=== PATIENT | male | born 1960 | race African-American/Black ===

== ENCOUNTER 2017-04-20 23:03 | Observation (INO) | payer OTHER ==
--- NOTE | 2017-04-20 23:05 | PDOC ---
History of Present Illness - General Chief Complaint: Pain Stated Complaint: INDIGESTION FOR 3 MONTHS Time Seen by Provider: 04/20/17 23:04 History Source: Patient Exam Limitations: No Limitations Past History - Past Medical History Allergies/Adverse Reactions: Allergies Allergy/AdvReac Type Severity Reaction Status Date / Time No Known Allergies Allergy Verified 03/04/16 14:57 Home Medications: Ambulatory Orders Insulin Glargine,Hum.rec.anlog [Lantus Solostar PEN -] 45 units SQ AM 02/13/15 Insulin Aspart [Novolog] 0 unit SQ ASDIR 04/19/15 Ibuprofen 600 mg PO TID PRN #10 tablet 03/04/16 Diabetes: Yes Suicide Attempt (Hx): No - Surgical History Orthopedic Surgery: Yes (SX FOR HERNIATED DISC) - Immunization History Immunization Up to Date: No - Psycho/Social/Smoking Cessation Hx Anxiety: No Suicidal Ideation: No Smoking History: Former smoker Have you smoked in the past 12 months: No 'Breaking Loose' booklet given: 12/31/14 Hx Alcohol Use: No Drug/Substance Use Hx: No Substance Use Type: None Hx Substance Use Treatment: No *DC/Admit/Observation/Transfer - Discharge Dispostion Condition at time of disposition: Stable
[2017-04-20] MEDS ORDERED: ASPIRIN 81 MG CHEWABLE TABLETS PO ONE (23:27)
--- NOTE | 2017-04-20 23:29 | PDOC ---
History of Present Illness - General Chief Complaint: Pain Stated Complaint: INDIGESTION FOR 3 MONTHS Time Seen by Provider: 04/20/17 23:04 History Source: Patient Exam Limitations: No Limitations - History of Present Illness Initial Comments: 04/20/17 23:31 This is a 57-year-old male who comes in complaining of intermittent indigestion 3 months. Patient describes it as substernal pressure sensation. Patient denies any associated symptoms of nausea, diaphoresis, radiation or shortness of breath with it. Patient is concerned that he thinks it may be his gallbladder. Patient has a history significant for insulin-dependent diabetes. Patient does not know what his family history is for cardiac disease on his father's side as he says he does not know who his father is. Patient denies any history of coronary artery disease. Patient said he quit smoking many years ago and denies any recreational drug use. PAST MEDICAL HISTORY: no significant history PAST SURGICAL HISTORY: no significant history FAMILY HISTORY: no pertinant history SOCIAL HISTORY: Pt lives with family and is employed. MEDICATIONS: reviewed ALLERGIES: As per nursing notes Review of Systems General: No fevers or chills, no weakness, no weight loss HEENT: No change in vision. No sore throat,. No ear pain CardioVascular: Substernal pressure as per history of present illness or shortness of breath Respiratory:No cough, or wheezing. Gastrointestinal: no nausea, vomitting, diarrhea or constipation, No rectal bleeding Genitourinary: No dysuria, hematuria, or frequency Musculoskeletal: No joint or muscle pain or swelling Neurologic: No headache, vertigo, dizziness or loss of consciousness Psychiatric: nor depression Skin: No rashes or easy bruising Endocrine: no increased thirst or abnormal weight change Allergic: no skin or latex allergy All other systems reviewed and normal Exam: General: Well-nourished well-developed individual, no acute distress HEENT: Throat: Normal, tonsils normal, no erythema or exudate Neck: Supple, no meningeal signs, no lymphadenopathy Eyes::Pupils equal reactive and round, extraocular motion intact Chest: Nontender to palpation Cardiac: S1-S2 normal, regular rate and rhythm, no murmurs rubs or gallops Respiratory: Lungs clear to auscultation bilateral Abdomen: Soft, nondistended, normal bowel sounds, nontender to palpation diffusely Extremities: Warm, dry, no cyanosis, clubbing, or edema Skin: No rashes Neuro: Alert and oriented x3, nonfocal exam, grossly intact, normal gait Psych: Normal mood and affect EKG shows normal sinus rhythm at a rate is 78, there are Q waves in V1 and V2 otherwise no acute ST-T wave changes Assessment and plan: Past History - Past Medical History Allergies/Adverse Reactions: Allergies Allergy/AdvReac Type Severity Reaction Status Date / Time No Known Allergies Allergy Verified 03/04/16 14:57 Home Medications: Ambulatory Orders Insulin Glargine,Hum.rec.anlog [Lantus Solostar PEN -] 45 units SQ AM 02/13/15 Insulin Aspart [Novolog] 0 unit SQ ASDIR 04/19/15 Ibuprofen 600 mg PO TID PRN #10 tablet 03/04/16 Diabetes: Yes Suicide Attempt (Hx): No - Surgical History Orthopedic Surgery: Yes (SX FOR HERNIATED DISC) - Immunization History Immunization Up to Date: No - Psycho/Social/Smoking Cessation Hx Anxiety: No Suicidal Ideation: No Smoking History: Never smoked Have you smoked in the past 12 months: No 'Breaking Loose' booklet given: 12/31/14 Hx Alcohol Use: No Drug/Substance Use Hx: No Substance Use Type: None Hx Substance Use Treatment: No *Physical Exam - Vital Signs Last Vital Signs Temp Pulse Resp BP Pulse Ox 97.9 F 92 H 18 125/92 95 04/20/17 23:06 04/20/17 23:06 04/20/17 23:06 04/20/17 23:06 04/20/17 23:06 Heart Score/ECG Review - History History: Moderately suspicious - Electrocardiogram EKG: Non specific repolarization disturbance - Age Age: 45-65 - Risk Factors Risk Factors Heart Score: Yes Hx Diabetes Based on the list above the patient has:: 1-2 risk factors - Troponin Troponin: </= normal limit - Score Heart Score - Total: 4 ED Treatment Course - LABORATORY CBC & Chemistry Diagram: 04/20/17 23:30 04/20/17 23:30 - ADDITIONAL ORDERS Additional order review: Laboratory Results 04/20/17 04/20/17 04/20/17 23:30 23:30 23:30 Sodium Potassium Chloride Carbon Dioxide Anion Gap BUN Creatinine Creat Clearance w eGFR Random Glucose Calcium Total Bilirubin AST ALT Alkaline Phosphatase Creatine Kinase 306 D Cancelled Creatine Kinase Index CK-MB (CK-2) < 1.000 CK-MB (CK-2) Rel Index Cancelled Troponin I < 0.02 Cancelled Total Protein Albumin 04/20/17 23:30 Sodium 141 Potassium 4.1 Chloride 105 Carbon Dioxide 28 Anion Gap 8 BUN 10 D Creatinine 1.1 D Creat Clearance w eGFR > 60 Random Glucose 191 H D Calcium 8.4 L Total Bilirubin 0.3 D AST 16 D ALT 18 D Alkaline Phosphatase 67 D Creatine Kinase Creatine Kinase Index CK-MB (CK-2) CK-MB (CK-2) Rel Index Troponin I Total Protein 6.8 Albumin 3.7 04/20/17 23:30 RBC 4.86 MCV 83.0 MCHC 32.6 RDW 13.6 MPV 8.7 D Neutrophils % 47.6 Lymphocytes % 42.9 H Monocytes % 6.0 Eosinophils % 2.8 Basophils % 0.7 - RADIOLOGY Radiology Studies Ordered: Category Date Time Status CHEST X-RAY PORTABLE* [RAD] Stat Radiology 04/20/17 23:33 Taken - Medications Given in the ED: ED Medications Discontinued Medications Generic Name Dose Route Start Last Admin Trade Name Freq PRN Reason Stop Dose Admin Aspirin 325 mg 04/20/17 23:27 04/20/17 23:37 Asa - PO 04/20/17 23:28 325 mg ONCE ONE Administration *DC/Admit/Observation/Transfer Diagnosis at time of Disposition: Chest pain Qualifiers: Chest pain type: unspecified Qualified Code(s): R07.9 - Chest pain, unspecified - Discharge Dispostion Condition at time of disposition: Stable Admit: Yes
[2017-04-20] MEDS ORDERED: ASPIRIN 81 MG CHEWABLE TABLETS ONE (23:36)
[2017-04-21 00:44] LABS: BASOPHIL 0.7 % (0-2.0); EOSINOPHIL 2.8 % (0-4.5); MCHC 32.6 g/dl (32.0-35.9); MEAN PLT VOLUME 8.7 fl (7.5-11.1); NEUTROPHILS 47.6 % (42.8-82.8); PLATELET COUNT 255 K/MM3 (134-434); RDW 13.6 % (11.9-15.9); WHITE BLOOD COUNT 5.8 K/mm3 (4.0-10.0)
[2017-04-21 01:03] LABS: ALK PHOS 67 U/L (45-117)
[2017-04-21 01:05] LABS: TROPONIN I < 0.02 ng/ml (0.00-0.05)
[2017-04-21 01:07] LABS: ALBUMIN 3.7 g/dl (3.4-5.0); ANION GAP 8 (8-16); BILIRUBIN,TOTAL 0.3 mg/dL (0.2-1.0); CALCIUM 8.4 mg/dL (8.5-10.1); CO2 28 mmol/L (21-32); CREATININE 1.1 mg/dL (0.7-1.3); GLUCOSE,RANDOM 191 mg/dL (74-106); SGOT/AST 16 U/L (15-37); SGPT/ALT 18 U/L (12-78); TOT PROT 6.8 g/dl (6.4-8.2)
[2017-04-21] MEDS ORDERED: INSULIN SLIDING SCALE (NOVOLOG) 1 VIAL SQ SCH ×2 (02:00→11:00)
[2017-04-21 02:40] VITALS: BMI 31.9
[2017-04-21] MEDS: INSULIN SLIDING SCALE (NOVOLOG) 1 VIAL SQ SCH ×2 (06:30→12:45)
--- NOTE | 2017-04-21 07:44 | HP ---
CHIEF COMPLAINT: epigastric discomfort PCP: Dr Gomez HISTORY OF PRESENT ILLNESS: Patient is a 57 y/o male with a past medical history of IDDM. Patient reports for the past 3 month of indigestion. In addition, he reports for the past 3 months the sensation of food becoming stuck in his esophagus after swallowing with worsening of difficulty passing foods. Patient is able pass fluids without difficulty. He reports worsening of epigastric discomfort within the past 12 hours and sought evaluation in the emergency department. ER course was notable for: (1) troponin x 1 wnl (2) ekg normal sinus rhythm (3) chest xray no evidence of acute pulmonary disease Recent Travel: none PAST MEDICAL HISTORY: see hpi PAST SURGICAL HISTORY: cervical disc fusion Social History: employed Smoking: quit 20years ago Alcohol:none Drugs: none Family History: father unknown, mother lung ca sister, CHF Allergies No Known Allergies Allergy (Verified 03/04/16 14:57) HOME MEDICATIONS: Home Medications Medication Instructions Recorded Insulin Glargine,Hum.rec.anlog 45 units SQ AM 02/13/15 [Lantus Solostar PEN -] Insulin Aspart [Novolog] 0 unit SQ ASDIR 04/19/15 Ibuprofen 600 mg PO TID PRN #10 tablet 03/04/16 REVIEW OF SYSTEMS CONSTITUTIONAL: Absent: fever, chills, diaphoresis, generalized weakness, malaise, loss of appetite, weight change HEENT: Absent: rhinorrhea, nasal congestion, throat pain, throat swelling, difficulty swallowing, mouth swelling, ear pain, eye pain, visual changes CARDIOVASCULAR: Absent: chest pain, syncope, palpitations, irregular heart rate, lightheadedness , peripheral edema RESPIRATORY: Absent: cough, shortness of breath, dyspnea with exertion, orthopnea, wheezing, stridor, hemoptysis GASTROINTESTINAL: present: indigestion, difficultly swallowing Absent: abdominal pain, abdominal distension, nausea, vomiting, diarrhea, constipation, melena, hematochezia GENITOURINARY: Absent: dysuria, frequency, urgency, hesitancy, hematuria, flank pain, genital pain MUSCULOSKELETAL: Absent: myalgia, arthralgia, joint swelling, back pain, neck pain SKIN: Absent: rash, itching, pallor HEMATOLOGIC/IMMUNOLOGIC: Absent: easy bleeding, easy bruising, lymphadenopathy, frequent infections ENDOCRINE: Absent: unexplained weight gain, unexplained weight loss, heat intolerance, cold intolerance NEUROLOGIC: Absent: headache, focal weakness or paresthesias, dizziness, unsteady gait, seizure, mental status changes, bladder or bowel incontinence PSYCHIATRIC: Absent: anxiety, depression, suicidal or homicidal ideation, hallucinations. PHYSICAL EXAMINATION Vital Signs - 24 hr 04/21/17 04/21/17 04/21/17 02:31 06:00 06:15 Temperature 98 F 98 F 98.3 F Pulse Rate 82 82 74 Respiratory 18 18 18 Rate Blood Pressure 130/65 130/65 120/72 O2 Sat by Pulse 97 Oximetry (%) GENERAL: Awake, alert, and fully oriented, in no acute distress. HEAD: Normal with no signs of trauma. EYES: Pupils equal, round and reactive to light, extraocular movements intact, sclera anicteric, conjunctiva clear. No lid lag. EARS, NOSE, THROAT: Ears normal, nares patent, oropharynx clear without exudates. Moist mucous membranes. NECK: Normal range of motion, supple without lymphadenopathy, JVD, or masses. LUNGS: Breath sounds equal, clear to auscultation bilaterally. No wheezes, and no crackles. No accessory muscle use. HEART: Regular rate and rhythm, normal S1 and S2 without murmur, rub or gallop. ABDOMEN: Soft, nontender, not distended, normoactive bowel sounds, no guarding, no rebound, no masses. No hepatomegaly or splenomegaly. MUSCULOSKELETAL: Normal range of motion at all joints. No bony deformities or tenderness. No CVA tenderness. UPPER EXTREMITIES: 2+ pulses, warm, well-perfused. No cyanosis. No clubbing. No peripheral edema. LOWER EXTREMITIES: 2+ pulses, warm, well-perfused. No calf tenderness. No peripheral edema. NEUROLOGICAL: Cranial nerves II-XII intact. Normal speech. Normal gait. PSYCHIATRIC: Cooperative. Good eye contact. Appropriate mood and affect. SKIN: Warm, dry, normal turgor, no rashes or lesions noted, normal capillary refill. Laboratory Results - last 24 hr 04/21/17 06:30 POC Glucometer 205 CBC WBC 5.8 K/mm3 (4.0-10.0) 04/20/17 23:30 RBC 4.86 M/mm3 (4.00-5.60) 04/20/17 23:30 Hgb 13.1 GM/dL (11.7-16.9) 04/20/17 23:30 Hct 40.3 % (35.4-49) 04/20/17 23:30 MCV 83.0 fl (80-96) 04/20/17 23:30 MCH 27.0 pg (25.7-33.7) 04/20/17 23:30 MCHC 32.6 g/dl (32.0-35.9) 04/20/17 23:30 RDW 13.6 % (11.9-15.9) 04/20/17 23:30 Plt Count 255 K/MM3 (134-434) 04/20/17 23:30 MPV 8.7 fl (7.5-11.1) D 04/20/17 23:30 Neutrophils % 47.6 % (42.8-82.8) 04/20/17 23:30 Lymphocytes % 42.9 % (8-40) H 04/20/17 23:30 Monocytes % 6.0 % (3.8-10.2) 04/20/17 23:30 Eosinophils % 2.8 % (0-4.5) 04/20/17 23:30 Basophils % 0.7 % (0-2.0) 04/20/17 23:30 CMP Sodium 141 mmol/L (136-145) 04/20/17 23:30 Potassium 4.1 mmol/L (3.5-5.1) 04/20/17 23:30 Chloride 105 mmol/L (98-107) 04/20/17 23:30 Carbon Dioxide 28 mmol/L (21-32) 04/20/17 23:30 Anion Gap 8 (8-16) 04/20/17 23:30 BUN 10 mg/dL (7-18) D 04/20/17 23:30 Creatinine 1.1 mg/dL (0.7-1.3) D 04/20/17 23:30 Creat Clearance w eGFR > 60 (>60) 04/20/17 23:30 POC Glucometer 205 UNITS (()) 04/21/17 06:30 Random Glucose 191 mg/dL (74-106) H D 04/20/17 23:30 Calcium 8.4 mg/dL (8.5-10.1) L 04/20/17 23:30 Total Bilirubin 0.3 mg/dL (0.2-1.0) D 04/20/17 23:30 AST 16 U/L (15-37) D 04/20/17 23:30 ALT 18 U/L (12-78) D 04/20/17 23:30 Alkaline Phosphatase 67 U/L (45-117) D 04/20/17 23:30 Creatine Kinase 306 IU/L (39-308) D 04/20/17 23:30 Creatine Kinase Index % (0.0-5.0) 04/20/17 23:30 CK-MB (CK-2) < 1.000 ng/ml (0.5-3.6) 04/20/17 23:30 CK-MB (CK-2) Rel Index Cancelled 04/20/17 23:30 Troponin I 0.01 ng/ml (0.00-0.05) 04/21/17 07:56 Total Protein 6.8 g/dl (6.4-8.2) 04/20/17 23:30 Albumin 3.7 g/dl (3.4-5.0) 04/20/17 23:30 ASSESSMENT/PLAN: 1) GI - pt reports difficulty passing foods, will order a barium swallow - he does report indigestion in the evening, will order PPI - known history of iddm, likely gastroperesis or achalasia, appreciate GI input 2) card - troponin x 2 wnl, pending 3rd, unlikely acs - ekg unchanged from prior, nsr no st abnormality - will require cardiac follow up as outpatient 3) endo -history of IDDM, continue fingersticks achs with regular insulin coverage, continue home dose lantus - pending hgb a1c f//e/n - diabetic diet - replete lytes prn ppx - pt is oob - protonix dispo: requires obsv admission. Problem List - Problem (1) Atypical chest pain Code(s): R07.89 - OTHER CHEST PAIN (2) Indigestion Code(s): K30 - FUNCTIONAL DYSPEPSIA Visit type - Emergency Visit Emergency Visit: Yes ED Registration Date: 04/21/17 Care time: The patient presented to the Emergency Department on the above date and was hospitalized for further evaluation of their emergent condition. - New Patient This patient is new to me today: Yes Date on this admission: 04/21/17 - Critical Care Critical Care patient: No
[2017-04-21 08:51] LABS: ACTIVATED PTT 27.9 SECONDS (24.0-38.9)
[2017-04-21 09:04] LABS: INR 0.97 (0.82-1.09); PROTHROMBIN TIME (PATIENT) 10.9 SEC (10.2-13.0)
[2017-04-21] MEDS ORDERED: PANTOPRAZOLE 40 MG TABLET (FP) PO SCH (10:00)
--- NOTE | 2017-04-21 10:21 | CON.CARD ---
Consult Consult Specialty:: Cardiology Referred by:: Hospitalist Medicine Reason for Consultation:: Chest pain - History of Present Illness Chief Complaint: Chest pain History of Present Illness: This is a 57-year-old male with h/o insulin-dependent Type 2 DM who presents with complaint of intermittent non-exertional indigestion 3 months. Patient describes it as substernal and epigastric pressure sensation, characterized with difficulty passing solid foods, but not liquids, sensation worse with lying down improved sitting up. Patient denies any associated symptoms of nausea , diaphoresis, radiation or shortness of breath, near or true syncope, palpitations, orthopnea, PND or LE edema. PAST MEDICAL HISTORY: no significant history PAST SURGICAL HISTORY: no significant history FAMILY HISTORY: no pertinant history SOCIAL HISTORY: Pt lives with family and is employed. MEDICATIONS: reviewed ALLERGIES: As per nursing notes - History Source History Provided By: Patient Limitations to Obtaining History: No Limitations - Past Medical History Endocrine: Yes: Diabetes Mellitus - Alcohol/Substance Use Hx Alcohol Use: No - Smoking History Smoking history: Never smoked Have you smoked in the past 12 months: No Home Medications - Allergies Allergies/Adverse Reactions: Allergies Allergy/AdvReac Type Severity Reaction Status Date / Time No Known Allergies Allergy Verified 03/04/16 14:57 - Home Medications Home Medications: Ambulatory Orders Insulin Glargine,Hum.rec.anlog [Lantus Solostar PEN -] 45 units SQ AM 02/13/15 Insulin Aspart [Novolog] 0 unit SQ ASDIR 04/19/15 Ibuprofen 600 mg PO TID PRN #10 tablet 03/04/16 Review of Systems - Review of Systems Gastrointestinal: reports: Dysphagia, Indigestion Vital Signs: Vital Signs Temperature 98.3 F 04/21/17 06:15 Pulse Rate 74 04/21/17 06:15 Respiratory Rate 18 04/21/17 06:15 Blood Pressure 120/72 04/21/17 06:15 O2 Sat by Pulse Oximetry (%) 97 04/21/17 06:15 Constitutional: Yes: No Distress, Calm Neck: Yes: Supple Respiratory: Yes: Regular, CTA Bilaterally Gastrointestinal: Yes: Normal Bowel Sounds, Soft Cardiovascular: Yes: Regular Rate and Rhythm JVD: No Carotid Bruit: No Heart Sounds: Yes: S1, S2 Edema: No - Other Data Labs, Other Data: INR, PTT INR 0.97 (0.82-1.09) 04/21/17 07:56 Troponin, BNP 04/21/17 07:56 Troponin I 0.01 Troponin, BNP 04/21/17 07:56 Troponin I 0.[address]-T changes Imaging - Results Chest X-ray: Report Reviewed (NAD) Problem List - Problems (1) Atypical chest pain Code(s): R07.89 - OTHER CHEST PAIN (2) Insulin dependent diabetes mellitus Code(s): E11.9 - TYPE 2 DIABETES MELLITUS WITHOUT COMPLICATIONS Z79.4 - DIE WELDER (CURRENT) USE OF INSULIN Assessment/Plan 1. Chest pain syndrome with atypical features r/o esophageal stricture, obstruction, achalasia, dysmotility, gastroparesis 2. Insulin-dependent Type 2 DM P:1. Barium swallow, GI evaluation for EGD, manometry, ruled out for VT 2. Thank you for consultative opportunity
[2017-04-21] MEDS ORDERED: METOCLOPRAMIDE HCL 10 MG TABLET (FP) PO SCH (11:00)
[2017-04-21 11:08] LABS: CHOLESTEROL 176 mg/dl
--- NOTE | 2017-04-21 11:50 | CON.GI ---
Consult Consult Specialty:: GI Reason for Consultation:: epigastric disomfort atypical chest pain - History of Present Illness Chief Complaint: epigastric discomfort History of Present Illness: Mr. Coleman is a 57 year old man with a past medical history of DM who presents to the ER with complaints of chest pain and sensation of food intermittently sticking in his throat. He states he has been experiencing these GI complaints over the past three months. He states he has intermittent reflux. He denies vomiting, nausea, melena, BRBR, weight loss , smoking , etoh abuse. He has never been hospitalized for food impaction. Last colonoscopy 4 years ago - he reports polyps. He has never had an egd in the past. He tolerated full breakfast today without complaints. - History Source History Provided By: Patient Limitations to Obtaining History: No Limitations - Past Medical History [employer]: No: Alzheimer's, CVA, Dementia, Migraine, Multiple Sclerosis, Peripheral Neuropathy, Parkinson's, Seizure, Syncope, TIA, Vertigo, Other Cardio/Vascular: No: AFIB, Aneurysm, Aortic Insufficiency, Aortic Stenosis, CAD , CHF, Deep Vein Thrombosis, HTN, Hyperlipdemia, MD, Mitral Insufficiency, Mitral Stenosis, Murmur, Pulmonary Hypertension, Other Pulmonary: No: Asthma, Bronchitis, Cancer, COPD, O2 Dependent, Pneumonia, Previously Intubated, Pulmonary Embolus, Pulmonary Fibrosis, Sleep Apnea, Other Gastrointestinal: No: Ascites, Cancer, Constipation, Crohn's Disease, Diverticulitis, Diverticulosis, Esophageal Varices, Gastritis, GERD, GI Bleed, Hemorrhoids, Hiatal Hernia, Inflamatory Bowel Disease, Irritable Bowel Disease, Pancreatitis, Peptic Ulcer Disease, Ulcerative Colitis, Other Hepatobiliary: No: Cirrhosis, Cholelithiasis, Cholecystitis, Choledocholithiasis , Hepatitis A, Hepatitis B, Hepatitis C, Other Renal/: No: Renal Failure, Renal Inusuff, BPH, Cancer, Hematuria, Hemodialysis , Neurogenic Bladder, Renal Calculi, UTI, Other Heme/Onc: No: Anemia, B12 Deficiency, Bleeding Disorder, Cancer, Current Chemotherapy, Current Radiation Therapy, Hemochromatosis, Hypercoaguable State, Myeloproliferative Synd, Sickle Cell Disease, Sickle Cell Trait, Thrombocytopenia, Other Infectious Disease: No: AIDS, C-Diff, Herpes Zoster, HIV, MRSA, STD's, Tuberculosis, VREF, Other ENT: No: Allergic Rhinitis, Sinusitis, Other Endocrine: Yes: Diabetes Mellitus Dermatology: No: Basal Cell, Cellulitis, Eczema, Melanoma, Psoriasis, Squamous Cell, Other - Past Surgical History Past Surgical History: Yes: None - Alcohol/Substance Use Hx Alcohol Use: No - Smoking History Smoking history: Never smoked Have you smoked in the past 12 months: No - Social History Usual Living Arrangement: With Significant Other History of Recent Travel: No Home Medications - Allergies Allergies/Adverse Reactions: Allergies Allergy/AdvReac Type Severity Reaction Status Date / Time No Known Allergies Allergy Verified 03/04/16 14:57 - Home Medications Home Medications: Ambulatory Orders Insulin Glargine,Hum.rec.anlog [Lantus Solostar PEN -] 45 units SQ AM 02/13/15 Insulin Aspart [Novolog] 0 unit SQ ASDIR 04/19/15 Ibuprofen 600 mg PO TID PRN #10 tablet 03/04/16 Family Disease History - Family Disease History Family History: Unremarkable Review of Systems - Review of Systems Constitutional: denies: No Symptoms, Chills, Diaphoresis, Fever, Lethargy, Loss of Appetite, Malaise, Night Sweats, Unintentional Wgt. Loss, Weakness, Other Eyes: denies: No Symptoms, Blind Spots, Blurred Vision, Double Vision, Eye Pain , Floaters, Photophobia, Recent Change in Vision, Other HENT: denies: No Symptoms, Difficult Swallowing, Ear Discharge, Ear Pain, Epistaxis, Gingival Bleeding, Hearing Loss, Mouth Swelling, Nasal Congestion, Ocular Prosthesis, Throat Pain, Toothache, Ringing in Ears, Other Neck: denies: No Symptoms, Decreased ROM, Lumps, Pain on Movement, Stiffness, Swollen Glands, Tenderness, Other Cardiovascular: reports: Chest Pain Respiratory: denies: No Symptoms, Cough, Exercise Intolerance, Hemoptysis, Orthopnea, PND, Snoring, SOB, SOB on Exertion, Wheezing, Other Gastrointestinal: reports: Dysphagia Genitourinary: denies: No Symptoms, Burning, Discharge, Dysuria, Flank Pain, Frequency, Hematuria, Incontinence, Lesions, Menses, Pain, Testicular Mass, Testicular Pain, Testicular Swelling, Urgency, Vaginal Bleeding, Other Physical Exam-GI Vital Signs: Vital Signs Temperature 98.1 F 04/21/17 10:00 Pulse Rate 73 04/21/17 10:00 Respiratory Rate 18 04/21/17 10:00 Blood Pressure 121/69 04/21/17 10:00 O2 Sat by Pulse Oximetry (%) 97 04/21/17 10:00 Constitutional: Yes: Well Nourished Eyes: Yes: WNL HENT: Yes: WNL Neck: Yes: WNL Cardiovascular: Yes: WNL Respiratory: Yes: WNL Gastrointestinal Inspection: Yes: WNL ...Auscultate: Yes: Normoactive Bowel Sounds Extremities: Yes: WNL Labs: INR, PTT INR 0.97 (0.82-1.09) 04/21/17 07:56 Problem List - Problems (1) Atypical chest pain Code(s): R07.89 - OTHER CHEST PAIN (2) Dysphagia Assessment/Plan: Impression: atypical chest pain / dysphagia DDX - esophagitis/ peptic stricture / motility disorder REC: diet as tolerated PPI 40 mg po qd complete cardiac evaluation ; outpt follow - up for diagnostic egd scheduling appt scheduled 05/03/17 Rg Yeh AT 1:30 pm Code(s): R13.10 - DYSPHAGIA, UNSPECIFIED
[2017-04-21] MEDS ORDERED: INSULIN (NOVOLOG) ASPART 100 UNITS/ML 10ML VIAL ONE (12:25)
[2017-04-21 14:29] VITALS: BP 129/74; PULSE 88; TEMP 97.9
--- NOTE | 2017-04-21 14:29 | EKG ---
Test Reason : Blood Pressure : / mmHG Vent. Rate : 078 BPM Atrial Rate : 078 BPM P-R Int : 146 ms QRS Dur : 088 ms QT Int : 372 ms P-R-T Axes : 023 -12 -05 degrees QTc Int : 424 ms NORMAL SINUS RHYTHM SEPTAL INFARCT (CITED ON OR BEFORE 03-FEB-2015) ABNORMAL ECG WHEN COMPARED WITH ECG OF 03-FEB-2015 00:40, NO SIGNIFICANT CHANGE WAS FOUND Confirmed by MARIAELENA BENTLEY MD ([id number]) on 04/21/2017 2:29:09 PM Referred By: MD BENJAMIN Confirmed By:MARIAELENA BENTLEY MD
[2017-04-21 14:49] LABS: CPK(DFH) 246 IU/L (38-174)
[2017-04-21 14:55] LABS: TROPONIN I (DFP) < 0.03 ng/ml (0.03-0.50)
[2017-04-21 15:21] LABS: CK MB 1.3 ng/ml (0.3-4.0)
[2017-04-22] MEDS ORDERED: INSULIN DETEMIR 100 UNITS/ML MDV SQ SCH (07:00)
--- NOTE | 2017-04-22 13:17 | DS ---
Physical Exam: SUBJECTIVE: Patient seen and examined, patient reports feeling well, denies any chest pain, patient is ambulatory throughout nursing station, pt denies any dyspnea upon exertion. OBJECTIVE:Patient is a 57 y/o male with a past medical history of IDDM. Patient reports for the past 3 month of indigestion. In addition, he reports for the past 3 months the sensation of food becoming stuck in his esophagus after swallowing with worsening of difficulty passing foods. Patient is able pass fluids without difficulty. He reports worsening of epigastric discomfort within the past 12 hours and sought evaluation in the emergency department. ER course was notable for: (1) troponin x 1 wnl (2) ekg normal sinus rhythm (3) chest xray no evidence of acute pulmonary disease Vital Signs Period Temp Pulse Resp BP Sys/Fung Pulse Ox Last 24 Hr 97.9 F 88 19 129/74 98 PHYSICAL EXAM GENERAL: The patient is awake, alert, and fully oriented, in no acute distress. HEAD: Normal with no signs of trauma. EYES: PERRL, extraocular movements intact, sclera anicteric, conjunctiva clear. ENT: Ears normal, nares patent, oropharynx clear without exudates, moist mucous membranes. NECK: Trachea midline, full range of motion, supple. LUNGS: Breath sounds equal, clear to auscultation bilaterally, no wheezes, no crackles, no accessory muscle use. HEART: Regular rate and rhythm, S1, S2 without murmur, rub or gallop. ABDOMEN: Soft, nontender, nondistended, normoactive bowel sounds, no guarding, no rebound, no hepatosplenomegaly, no masses. EXTREMITIES: 2+ pulses, warm, well-perfused, no edema. NEUROLOGICAL: Cranial nerves II through XII grossly intact. Normal speech, gait not observed. PSYCH: Normal mood, normal affect. SKIN: Warm, dry, normal turgor, no rashes or lesions noted. LABS Laboratory Results - last 24 hr 04/21/17 04/21/17 07:56 14:10 Hemoglobin A1c % 10.5 H D Creatine Kinase 246 H D CK-MB (CK-2) 1.3 CK-MB (CK-2) Rel Index 0.5 Troponin I < 0.03 L CBC WBC 5.8 K/mm3 (4.0-10.0) 04/20/17 23:30 RBC 4.86 M/mm3 (4.00-5.60) 04/20/17 23:30 Hgb 13.1 GM/dL (11.7-16.9) 04/20/17 23:30 Hct 40.3 % (35.4-49) 04/20/17 23:30 MCV 83.0 fl (80-96) 04/20/17 23:30 MCH 27.0 pg (25.7-33.7) 04/20/17 23:30 MCHC 32.6 g/dl (32.0-35.9) 04/20/17 23:30 RDW 13.6 % (11.9-15.9) 04/20/17 23:30 Plt Count 255 K/MM3 (134-434) 04/20/17 23:30 MPV 8.7 fl (7.5-11.1) D 04/20/17 23:30 Neutrophils % 47.6 % (42.8-82.8) 04/20/17 23:30 Lymphocytes % 42.9 % (8-40) H 04/20/17 23:30 Monocytes % 6.0 % (3.8-10.2) 04/20/17 23:30 Eosinophils % 2.8 % (0-4.5) 04/20/17 23:30 Basophils % 0.7 % (0-2.0) 04/20/17 23:30 CMP Sodium 141 mmol/L (136-145) 04/20/17 23:30 Potassium 4.1 mmol/L (3.5-5.1) 04/20/17 23:30 Chloride 105 mmol/L (98-107) 04/20/17 23:30 Carbon Dioxide 28 mmol/L (21-32) 04/20/17 23:30 Anion Gap 8 (8-16) 04/20/17 23:30 BUN 10 mg/dL (7-18) D 04/20/17 23:30 Creatinine 1.1 mg/dL (0.7-1.3) D 04/20/17 23:30 Creat Clearance w eGFR > 60 (>60) 04/20/17 23:30 POC Glucometer 240 UNITS (()) 04/21/17 12:05 Random Glucose 191 mg/dL (74-106) H D 04/20/17 23:30 Hemoglobin A1c % 10.5 % (4.8-6.0) H D 04/21/17 07:56 Calcium 8.4 mg/dL (8.5-10.1) L 04/20/17 23:30 Total Bilirubin 0.3 mg/dL (0.2-1.0) D 04/20/17 23:30 AST 16 U/L (15-37) D 04/20/17 23:30 ALT 18 U/L (12-78) D 04/20/17 23:30 Alkaline Phosphatase 67 U/L (45-117) D 04/20/17 23:30 Creatine Kinase 246 IU/L (38-174) H D 04/21/17 14:10 Creatine Kinase Index % (0.0-5.0) 04/20/17 23:30 CK-MB (CK-2) 1.3 ng/ml (0.3-4.0) 04/21/17 14:10 CK-MB (CK-2) Rel Index 0.5 % (0.0-5.0) 04/21/17 14:10 Troponin I < 0.03 ng/ml (0.03-0.50) L 04/21/17 14:10 Total Protein 6.8 g/dl (6.4-8.2) 04/20/17 23:30 Albumin 3.7 g/dl (3.4-5.0) 04/20/17 23:30 Triglycerides 188 mg/dl (35-160) H 04/21/17 07:56 Cholesterol 176 mg/dl 04/21/17 07:56 Total LDL Cholesterol 101 mg/dl 04/21/17 07:56 HDL Cholesterol 37 mg/dl (29-89) 04/21/17 07:56 Laboratory Tests 04/20/17 04/21/17 04/21/17 23:30 07:56 14:10 Troponin I < 0.02 0.01 < 0.03 L HOSPITAL COURSE: patient was admitted from the emergency department for r/o acs. Patient reports difficulty passing foods and indigestion in the evening. patient was placed on PPI - known history of iddm, likely gastroperesis or achalasia, Patient's hgb a1c was notable for 10.5. GI, Dr Reich was consulted and followed. Troponin x 3 wnl. ekg unchanged from prior, nsr no st abnormality, chest discomfort unlikely acs. Dr Wen, cardiology, was consulted and followed. Patient has a past medical history of IDDM, continue fingersticks achs with regular insulin coverage, continue home dose lantus. Date of Admission:04/21/17 Date of Discharge: 04/22/17 Minutes to complete discharge: 45 Discharge Summary Reason For Visit: INDIGESTION FOR 3 MONTHS Current Active Problems Atypical chest pain (Acute) Chest pain (Acute) Dysphagia (Acute) Indigestion (Acute) Insulin dependent diabetes mellitus (Acute) Condition: Improved - Instructions Diet, Activity, Other Instructions: resume soft diabetic diet continue taking protonix daily you have a scheduled appointment with Dr Johnna Reich GI on Wednesday, May 03 at 130pm at the [address] if any new or persistent symptoms develop please return to the emergency department Referrals: Johnna Reich, [Staff Physician] - 05/03/17 1:30 pm STAFF,NOT ON [Primary Care Provider] - Disposition: HOME - Home Medications Comprehensive Discharge Medication List: Ambulatory Orders Insulin Glargine,Hum.rec.anlog [Lantus Solostar PEN -] 45 units SQ AM 02/13/15 Insulin Aspart [Novolog] 0 unit SQ ASDIR 04/19/15 Ibuprofen 600 mg PO TID PRN #10 tablet 03/04/16 Pantoprazole Sodium [Protonix -] 40 mg PO DAILY #30 tab 04/21/17 Problem List - Problems (1) Atypical chest pain Code(s): R07.89 - OTHER CHEST PAIN (2) Indigestion Code(s): K30 - FUNCTIONAL DYSPEPSIA This patient is new to me today: No Emergency Visit: Yes ED Registration Date: 04/21/17 Care time: The patient presented to the Emergency Department on the above date and was hospitalized for further evaluation of their emergent condition. Critical Care patient: No - Discharge Referral Referred to [facility] No
--- NOTE | 2017-04-22 17:34 | EKG ---
Test Reason : Blood Pressure : / mmHG Vent. Rate : 076 BPM Atrial Rate : 076 BPM P-R Int : 144 ms QRS Dur : 084 ms QT Int : 366 ms P-R-T Axes : 037 -12 003 degrees QTc Int : 411 ms NORMAL SINUS RHYTHM WHEN COMPARED WITH ECG OF 20-APR-2017 23:20, septal Mi not as evident Confirmed by MD CAMACHO MARJORY ([id number]) on 04/22/2017 5:34:26 PM Referred By: MD PEREIRA Confirmed By:MATTHEW CAMACHO MD
== END 2017-04-21 15:39 | disposition home or self-care (01) ==
LOC: FER 23:03 → FM/S 04-21 01:42
PROVIDERS: ADMIT Internal Medicine; ATTEND Nurse Practitioner Family
PROC: 3E033VG Introduction of Insulin into Peripheral Vein, Percutaneous Approach (ICD-10-PCS; principal; 2017-04-21)
DX: R07.89 Other chest pain (principal); K30 Functional dyspepsia; E11.9 Type 2 diabetes mellitus without complications; Z79.4 Long term (current) use of insulin
CPT/HCPCS: 36415; 71010-TC; 80053; 80061; 82550; 82553; 83036; 84484; 85025; 85610; 85730; 93005; 93010; 99282-25; G0378

== ENCOUNTER 2018-08-08 11:57 | Emergency (ER) | payer OTHER ==
--- NOTE | 2018-08-08 12:05 | PDOC ---
History of Present Illness - General Chief Complaint: Blood Sugar Problem Stated Complaint: HYPERGLYCEMIA Time Seen by Provider: 08/08/18 11:59 - History of Present Illness Initial Comments: 08/08/18 12:15 58yo male with hx of IDDM presents for eval of elevated BG. Pt states he checked his blood glucose this AM and it was >330. States he has been using his insulin daily. Pt states he has been not watching his diet for about the last 3 days and today was the first day he checked his BG. Pt states he normally has an AM fasting bg of 120 and never runs this high. States he went to see him PMD , who had left the practice and could not get in to see another PMD until september 14. Pt denies kidd. No blurred vision. No cp/sob. No cough. No f/c. No abd pain. No n/v/d. C/o urinary freq, but denies dysuria. No rashes. No LE swelling or cramping. Pt denies all other complaints. States he hasn't eaten today because of the elevated BG. States he only uses his insulin in the AM. 08/08/18 12:16 PMHx: IDDM PShx: cervical disc fusion Allergies: NKDA Social: quit smoking, denies ETOH Past History - Past Medical History Allergies/Adverse Reactions: Allergies Allergy/AdvReac Type Severity Reaction Status Date / Time No Known Allergies Allergy Verified 08/08/18 11:58 Home Medications: Ambulatory Orders Dextroamphetamine/Amphetamine [Adderall 10 mg Tablet] 20 mg PO DAILY 08/08/18 Fluoxetine HCl [Prozac] 10 mg PO DAILY 08/08/18 Insulin Degludec/Liraglutide [Xultophy 100 Unit-3.6 mg/ml] 30 ml SQ DAILY Diabetes: Yes - Surgical History Orthopedic Surgery: Yes (SX FOR HERNIATED DISC) - Immunization History Immunization Up to Date: No - Suicide/Smoking/Psychosocial Hx Smoking History: Never smoked Have you smoked in the past 12 months: No 'Breaking Loose' booklet given: 12/31/14 Hx Alcohol Use: No Drug/Substance Use Hx: No Substance Use Type: None Hx Substance Use Treatment: No Review of Systems - Review of Systems Able to Perform ROS?: Yes Is the patient limited [place]ican proficient: No Constitutional: No: Chills, Fever HEENTM: No: Blurred Vision, Double Vision Respiratory: No: Cough, Shortness of Breath Cardiac (ROS): No: Chest Pain, Edema, Irregular Heart Rate, Palpitations ABD/GI: No: Diarrhea, Nausea, Vomiting, Abdominal cramping : Yes: Frequency. No: Burning, Dysuria, Discharge, Hematuria Musculoskeletal: No: Back Pain Integumentary: No: Bruising, Rash Neurological: No: Headache, Numbness, Paresthesia, Ataxia All Other Systems: Reviewed and Negative *Physical Exam - Vital Signs 08/08/18 12:37 Selected Entries 08/08/18 11:58 Temperature 98.3 F Pulse Rate 109 H Respiratory 20 Rate Blood Pressure 120/88 Blood Pressure 98 Mean O2 Sat by Pulse 97 Oximetry (%) Weight 85.729 kg - Physical Exam General Appearance: Yes: Nourished, Appropriately Dressed. No: Apparent Distress HEENT: positive: EOMI, Normal Voice. negative: Rhinorrhea Neck: positive: Supple Respiratory/Chest: positive: Lungs Clear, Normal Breath Sounds. negative: Respiratory Distress Cardiovascular: positive: Regular Rhythm, S1, S2, Tachycardia. negative: Regular Rate Gastrointestinal/Abdominal: positive: Normal Bowel Sounds, Soft. negative: Tender, Guarding, Rebound, Tenderness Musculoskeletal: positive: Normal Inspection. negative: CVA Tenderness Extremity: positive: Normal Capillary Refill, Normal Inspection. negative: Calf Tenderness Integumentary: positive: Normal Color, Dry, Warm Neurologic: positive: life trainer II-XII NML intact, Fully Oriented, Alert, Normal Mood/ Affect, Normal Response, Other (ambulatory with a steady gait, no focal neuro deficits) Heart Score/ECG Review - ECG Intrepretation Comment:: 08/08/18 13:16 sinus at 92, nl axis, nl interval, lvh, q waves septally that are age indeterminate ED Treatment Course - LABORATORY CBC & Chemistry Diagram: 08/08/18 12:35 08/08/18 12:35 Medical Decision Making - Medical Decision Making 08/08/18 12:40 a/p: 58yo male with hx of DM on insulin injections in the AM with elevated glucose today -noncompliant with diet -has not been checking glucose -urinary freq - suspect from uncontrolled DM and not from infection -pt is nontoxic in appearance -will send labs, ua, acetone -will start ivf hydration -will monitor and reassess 08/08/18 12:55 glucose 291 08/08/18 13:20 labs reviewed glucosuria acetone negative will hydrate and repeat BG pt is nontoxic in appearance 08/08/18 15:12 pt has been ambulatory in the ED 08/08/18 15:29 repeat glucose 220 feels better stable for d/c to home *DC/Admit/Observation/Transfer Diagnosis at time of Disposition: Acute hyperglycemia - Discharge Dispostion Disposition: HOME Condition at time of disposition: Stable Decision to Admit order: No - Referrals Referrals: Rick Moses MD [Staff Physician] - - Patient Instructions Printed Discharge Instructions: DI for Hyperglycemia -- Adult - Post Discharge Activity Forms/Work/School Notes: Back to Work - Attestations Physician Attestion: 08/08/18 12:56 I, Dr. Teagan Rivers, DO, attest that this document has been prepared under my direction and personally reviewed by me in its entirety. I further attest, that it accurately reflects all work, treatment, procedures and medical decision -making performed by me.
[2018-08-08] MEDS ORDERED: SODIUM CHLORIDE 0.9% 1000 ML INFUS.BAG IV ONE ×2 (12:06→13:16)
[2018-08-08 12:20] VITALS: BP 120/88; PULSE 109; TEMP 98.3; BMI 31.4
[2018-08-08 12:57] LABS: URINE APPEARANCE Clear; URINE BILIRUBIN Negative (NEGATIVE); URINE COLOR Yellow; URINE GLUCOSE (UA) 3+ (NEGATIVE); URINE KETONE Negative (NEGATIVE); URINE LEUK ESTERASE Negative (NEGATIVE); URINE NITRITE Negative (NEGATIVE); URINE PROTEIN Negative (NEGATIVE); URINE UROBILINOGEN 0.2 (0.2-1.0)
[2018-08-08 13:02] LABS: BASO % 0.7 % (0-2.0); EOS % 2.7 % (0-4.5); HEMATOCRIT 46.6 % (35.4-49); HEMOGLOBIN 15.2 GM/dl (11.7-16.9); LYMPH % 28.3 % (8-40); MCH 27.5 pg (25.7-33.7); MCHC 32.6 g/dl (32.0-35.9); MEAN CELL VOLUME 84.3 fl (80-96); MEAN PLT VOLUME 8.7 fl (7.5-11.1); MONO % 4.3 % (3.8-10.2); PLATELET COUNT 299 K/MM3 (134-434); RBC 5.52 M/mm3 (4.00-5.60); RDW 13.5 % (11.9-15.9); WHITE BLOOD COUNT 7.1 K/mm3 (4.0-10.8)
[2018-08-08 13:09] LABS: ACETONE SERUM NEGATIVE (NEGATIVE)
[2018-08-08 13:14] LABS: ALBUMIN 4.5 g/dl (3.5-5.0); ALK PHOS 92 U/L (32-92); ANION GAP 10 MMOL/L (8-16); BILIRUBIN,TOTAL 1.1 mg/dl (0.2-1.0); BLOOD UREA NITROGEN 12 mg/dl (7-18); CALCIUM 9.3 mg/dl (8.4-10.2); CHLORIDE 99 mmol/L (98-107); CO2 24 mmol/L (22-28); GLUCOSE,RANDOM 298 mg/dl (74-106); MAGNESIUM 1.9 mg/dL (1.8-2.4); SGOT/AST 22 U/L (10-42); SGPT/ALT 23 U/L (10-40); SODIUM 133 mmol/L (136-145); TOT PROT 7.8 g/dl (6.4-8.3)
--- NOTE | 2018-08-09 16:12 | EKG ---
Test Reason : Blood Pressure : / mmHG Vent. Rate : 092 BPM Atrial Rate : 092 BPM P-R Int : 142 ms QRS Dur : 086 ms QT Int : 354 ms P-R-T Axes : 034 -01 -02 degrees QTc Int : 437 ms NORMAL SINUS RHYTHM SEPTAL INFARCT (CITED ON OR BEFORE 08-AUG-2018) ABNORMAL ECG WHEN COMPARED WITH ECG OF 21-APR-2017 10:21, QUESTIONABLE CHANGE IN INITIAL FORCES OF SEPTAL LEADS Confirmed by MD GWEN, BRYCE ([id number]) on 08/09/2018 4:11:53 PM Referred By: MATTHEW CEDENO Confirmed By:BRYCE HIDALGO MD
== END 2018-08-08 15:31 | disposition home or self-care (01) ==
LOC: FER 11:57
PROC: 3E0337Z Introduction of Electrolytic and Water Balance Substance into Peripheral Vein, Percutaneous Approach (ICD-10-PCS; principal; 2018-08-08)
DX: E11.65 Type 2 diabetes mellitus with hyperglycemia (principal); Z79.4 Long term (current) use of insulin
CPT/HCPCS: 36415; 80053; 81003; 82009; 82962; 83735; 85025; 93005; 96360; 96361; 99282-25; J7030

== ENCOUNTER 2019-04-28 09:01 | Emergency (ER) | payer OTHER ==
--- NOTE | 2019-04-28 09:07 | PDOC ---
History of Present Illness - General Chief Complaint: Injury Stated Complaint: LEFT 5TH FINGER INJURY Time Seen by Provider: 04/28/19 09:07 - History of Present Illness Initial Comments: 04/28/19 09:38 Pt presents to the ED complaining of pain and swelling to his L 5th MCP joint after catching a box with his left hand. He presented to an ED in [place], had an xray and a CT of the hand that were negative. Denies further injuries to the hand. presents today because he is still having pain and swelling. 04/28/19 09:44 Past History - Past Medical History Allergies/Adverse Reactions: Allergies Allergy/AdvReac Type Severity Reaction Status Date / Time No Known Allergies Allergy Verified 04/28/19 09:02 Home Medications: Ambulatory Orders Dextroamphetamine/Amphetamine [Adderall 10 mg Tablet] 20 mg PO DAILY 08/08/18 Insulin Degludec/Liraglutide [Xultophy 100 Unit-3.6 mg/ml] 30 units SQ DAILY Fluoxetine HCl 10 mg PO DAILY 04/28/19 Ibuprofen [Ibu] 600 mg PO TID PRN #30 tablet 04/28/19 COPD: No Diabetes: Yes Psychiatric Problems: Yes - Surgical History Orthopedic Surgery: Yes (SX FOR HERNIATED DISC) - Immunization History Immunization Up to Date: No - Suicide/Smoking/Psychosocial Hx Smoking History: Never smoked Have you smoked in the past 12 months: No 'Breaking Loose' booklet given: 12/31/14 Hx Alcohol Use: No Drug/Substance Use Hx: No Substance Use Type: None Hx Substance Use Treatment: No Review of Systems - Review of Systems Able to Perform ROS?: Yes Comments:: 04/28/19 09:45 Ext: + hand pain without weakness. No numbness or tingling. *Physical Exam - Physical Exam Comments: 04/28/19 09:45 L hand: + mild soft tissue swelling between L 4th and 5th MCP joint. + tenderness. Neurovascularly intact. Mild weakness of flexion at the 5th PIP joint, but able to flex and extend against resistance. Medical Decision Making - Medical Decision Making 04/28/19 09:47 Pt presents to the ED complaining of pain and tenderness of the L 5th digit. Xray and Ct at outside institution negative. Will perform xray to evaluate for occult fx. May be tendon injury--will refer to orthopedist. *DC/Admit/Observation/Transfer Diagnosis at time of Disposition: Hand sprain Qualifiers: Encounter type: initial encounter Laterality: left Qualified Code(s): S63.92XA - Sprain of unspecified part of left wrist and hand, initial encounter - Discharge Dispostion Disposition: HOME Condition at time of disposition: Good Decision to Admit order: No - Referrals Referrals: Osvaldo Driscoll DO [Staff Physician] - Marciano Howe MD [Staff Physician] - - Patient Instructions Printed Discharge Instructions: DI for Hand Injury Additional Instructions: you came to the ED for pain in your hand. Your xray is negative, but you may still have an injury to the tendons. You should return immediately for severe pain and swelling, other new or worsening symptoms. You should follow up with orthopedics. - Post Discharge Activity
[2019-04-28 09:13] VITALS: BP 136/81; PULSE 84; TEMP 98.1; BMI 30.7
[2019-04-28] MEDS ORDERED: IBUPROFEN 400 MG TABLET (FP) PO ONE ×2 (09:39→09:46)
== END 2019-04-28 11:00 | disposition left against medical advice (07) ==
LOC: FER 09:01
DX: S63.92XA Sprain of unspecified part of left wrist and hand, initial encounter (principal); E11.9 Type 2 diabetes mellitus without complications; W20.8XXA Other cause of strike by thrown, projected or falling object, initial encounter; Y93.89 Activity, other specified; Y92.89 Other specified places as the place of occurrence of the external cause
CPT/HCPCS: 73130-TC-LT-FY; 99282-25

== ENCOUNTER 2019-09-25 11:16 | Emergency (ER) | payer OTHER ==
[2019-09-25] MEDS ORDERED: AZITHROMYCIN 250 MG TABLET PO ONE (11:31)
[2019-09-25] MEDS ORDERED: ALBUTEROL SO4 0.083% IH SOL 2.5 MG/3 ML VIAL.NEB. NEB ONE ×2 (11:31→11:41)
--- NOTE | 2019-09-25 11:34 | PDOC ---
History of Present Illness - General Chief Complaint: Respiratory Stated Complaint: COUGH Time Seen by Provider: 09/25/19 11:18 - History of Present Illness Initial Comments: 09/25/19 11:31 59 M with h/o DM presenting with 1 month of persistent cough. Pt reports sensation that he has phlegm in his chest, which triggers a cough. He reports yellowish green phlegm production. Denies any CP/SOB. Denies F/C. No other flu- like symptoms. Pt denies recent travel. No leg swelling. Denies h/o cigarette smoking. Did smoke crack several years ago. No known h/o asthma/COPD. Pt states he has a court date today that he had to miss because of his cough. Requesting note excusing him. Past History - Past Medical History Allergies/Adverse Reactions: Allergies Allergy/AdvReac Type Severity Reaction Status Date / Time No Known Allergies Allergy Verified 04/28/19 09:02 Home Medications: Ambulatory Orders Dextroamphetamine/Amphetamine [Adderall 10 mg Tablet] 20 mg PO DAILY 08/08/18 Insulin Degludec/Liraglutide [Xultophy 100 Unit-3.6 mg/ml] 42 units SQ DAILY Fluoxetine HCl 10 mg PO DAILY 04/28/19 Ibuprofen [Ibu] 600 mg PO TID PRN #30 tablet 04/28/19 Azithromycin 250 mg PO DAILY #4 tablet 09/25/19 COPD: No Diabetes: Yes Psychiatric Problems: Yes - Surgical History Orthopedic Surgery: Yes (SX FOR HERNIATED DISC) - Immunization History Immunization Up to Date: No - Psycho Social/Smoking Cessation Hx Smoking History: Never smoked Have you smoked in the past 12 months: No 'Breaking Loose' booklet given: 12/31/14 Hx Alcohol Use: No Drug/Substance Use Hx: No Substance Use Type: None Hx Substance Use Treatment: No Review of Systems - Review of Systems Comments:: 09/25/19 11:33 "GENERAL/CONSTITUTIONAL: No fever or chills. No weakness. HEAD, EYES, EARS, NOSE AND THROAT: No change in vision. No ear pain or discharge. No sore throat. CARDIOVASCULAR: No chest pain, no shortness of breath, no loss of consciousness RESPIRATORY: + cough, no wheezing, or hemoptysis. GASTROINTESTINAL: No nausea, vomiting, diarrhea or constipation. GENITOURINARY: No dysuria, frequency, or change in urination. MUSCULOSKELETAL: No joint or muscle swelling or pain. No neck or back pain. SKIN: No rash NEUROLOGIC: No vertigo, no change in strength/sensation. ENDOCRINE: No increased thirst. No abnormal weight change. HEMATOLOGIC/LYMPHATIC: No anemia, easy bleeding, or history of blood clots. ALLERGIC/IMMUNOLOGIC: No hives or skin allergy. *Physical Exam - Physical Exam 09/25/19 11:33 "GENERAL: Awake, alert, and fully oriented, in no acute distress. HEAD: No signs of trauma EYES: PERRLA, EOMI, sclera anicteric, conjunctiva clear ENT: Auricles normal inspection, hearing grossly normal, nares patent, oropharynx clear without exudates. Moist mucosa NECK: Nontender, no stepoffs, Normal ROM, supple, no lymphadenopathy, JVD, or masses LUNGS: Breath sounds equal, clear to auscultation bilaterally. No wheezes, and no crackles HEART: Regular rate and rhythm, normal S1 and S2, no murmurs, rubs or gallops ABDOMEN: Soft, nontender, normoactive bowel sounds. No guarding, no rebound. No masses EXTREMITIES: Normal range of motion, no edema. No clubbing or cyanosis. No cords, erythema, or tenderness NEUROLOGICAL: Cranial nerves II through XII intact. 5/5 strength and sensation in all extremities, Normal speech, normal gait, normal cerebellar function SKIN: Warm, Dry, normal turgor, no rashes or lesions noted. ED Treatment Course - RADIOLOGY Radiology Studies Ordered: Category Date Time Status CHEST PA & LAT [RAD] Stat Radiology 09/25/19 11:30 Ordered Medical Decision Making - Medical Decision Making 09/25/19 11:33 59 M with cough x 1 month. Possible bronchitis/URI. Pt with clear lungs, no wheezing. However, given h/o smoking crack, will trial nebulizer tx. - CXR - Nebulizer 09/25/19 12:12 CXR clear on my read Will give pt Z-pack for bronchitis Pt is well appearing, with normal vitals. Clinically stable for DC at this time. I discussed the physical exam findings, ancillary test results and final diagnoses with the patient. I answered all of the patient's questions. The patient was satisfied with the care received and felt comfortable with the discharge plan and treatment plan. The patient agrees to follow up with the primary care physician within 24-72 hours. Discharge - Discharge Information Problems reviewed: Yes Clinical Impression/Diagnosis: Cough, URI (upper respiratory infection), Nasal congestion Condition: Good Disposition: HOME - Additional Discharge Information Prescriptions: Azithromycin 250 mg PO DAILY #4 tablet - Follow up/Referral - Patient Discharge Instructions Patient Printed Discharge Instructions: DI for Cough -- Adult Additional Instructions: Follow up with your primary care doctor within 1 week. Ask for a referral to a steamfitter supervisor (lung doctor) for further management of your cough. If you experience worsening cough, shortness of breath, chest pain, fevers, or any other concerning symptoms, return to the ER immediately. - Post Discharge Activity Work/Back to School Note: Back to Work
[2019-09-25 11:40] VITALS: BP 137/98; PULSE 82; TEMP 98.1; BMI 31.1
[2019-09-25] MEDS ORDERED: AZITHROMYCIN 500 MG TABLET ONE (11:41)
== END 2019-09-25 12:27 | disposition home or self-care (01) ==
LOC: FER 11:16
PROC: 3E0F7GC Introduction of Other Therapeutic Substance into Respiratory Tract, Via Natural or Artificial Opening (ICD-10-PCS; principal; 2019-09-25)
DX: R05 Cough (principal); R09.89 Other specified symptoms and signs involving the circulatory and respiratory systems; J06.9 Acute upper respiratory infection, unspecified
CPT/HCPCS: 71046-TC-FY; 99282-25

== ENCOUNTER 2021-07-01 22:08 | Emergency (ER) | payer OTHER ==
[2021-07-01 22:21] VITALS: BP 149/92; PULSE 114; TEMP 101; BMI 31.6
[2021-07-01] MEDS ORDERED: ACETAMINOPHEN 500 MG TABLET (FP) ONE (22:47)
[2021-07-01] MEDS ORDERED: ACETAMINOPHEN 500 MG TABLET (FP) PO ONE (23:00)
[2021-07-03 12:08] LABS: SARS-CoV-2 NAA Not Detected (Not Detected)
== END 2021-07-01 23:02 | disposition home or self-care (01) ==
LOC: FER 22:08
DX: R50.9 Fever, unspecified (principal); M25.561 Pain in right knee; M25.562 Pain in left knee
CPT/HCPCS: 87804; 99284-25; C9803; U0003; U0005

== ENCOUNTER 2022-07-28 00:01 | Emergency (ER) | payer OTHER ==
[2022-07-28 00:10] VITALS: BP 133/90; PULSE 108; RESP 17; TEMP 98.4; BMI 31.6
[2022-07-28] MEDS ORDERED: SODIUM CHLORIDE 1,000 ML IV ONE (00:19)
== END 2022-07-28 00:59 | disposition home or self-care (01) ==
LOC: FER 00:01
DX: R73.9 Hyperglycemia, unspecified (principal)
CPT/HCPCS: 82962; 99283-25

== ENCOUNTER 2022-08-18 08:31 | Emergency (ER) | payer OTHER ==
[2022-08-18 08:51] VITALS: BP 120/83; PULSE 86; RESP 20; TEMP 98; BMI 27.4
== END 2022-08-18 08:58 | disposition home or self-care (01) ==
LOC: FER 08:31
DX: S31.20XA Unspecified open wound of penis, initial encounter (principal); W23.0XXA Caught, crushed, jammed, or pinched between moving objects, initial encounter
CPT/HCPCS: 99282-25

== ENCOUNTER 2022-12-07 09:05 | Emergency (ER) | payer OTHER ==
[2022-12-07 09:14] VITALS: BP 135/88; PULSE 74; RESP 18; TEMP 98; BMI 31.4
[2022-12-07] MEDS ORDERED: ALBUTEROL SO4 2.5/IPRATROPIUM 0.5 INH SOL 3 ML VIAL.NEB. NEB SCH (10:00)
[2022-12-07] MEDS ORDERED: ALBUTEROL SO4 2.5/IPRATROPIUM 0.5 INH SOL 3 ML VIAL.NEB. NEB ONE (11:10)
== END 2022-12-07 11:50 | disposition home or self-care (01) ==
LOC: FER 09:05
PROC: 3E0F7GC Introduction of Other Therapeutic Substance into Respiratory Tract, Via Natural or Artificial Opening (ICD-10-PCS; principal; 2022-12-07)
DX: R05.1 Acute cough (principal)
CPT/HCPCS: 0241U-QW; 71046-TC-FY; 99284-25

== ENCOUNTER 2023-05-20 12:20 | Emergency (ER) | payer OTHER ==
[2023-05-20 12:26] VITALS: BP 116/91; PULSE 91; RESP 18; TEMP 98.7; BMI 31.6
[2023-05-20] MEDS ORDERED: ACETAMINOPHEN 500 MG TABLET (FP) PO ONE (12:32)
[2023-05-20] MEDS ORDERED: ACETAMINOPHEN 325 MG TABLET (FP) ONE (12:37)
[2023-05-20] MEDS ORDERED: IBUPROFEN 600 MG TABLET (FP) PO ONE ×2 (13:58→14:13)
== END 2023-05-20 15:20 | disposition home or self-care (01) ==
LOC: FER 12:20
DX: S92.254A Nondisplaced fracture of navicular [scaphoid] of right foot, initial encounter for closed fracture (principal); M25.511 Pain in right shoulder; M25.571 Pain in right ankle and joints of right foot; V28.09XA Other motorcycle driver injured in noncollision transport accident in nontraffic accident, initial encounter
CPT/HCPCS: 73000-TC-RT-FY; 73030-TC-RT-FY; 73610-TC-RT-FY; 73630-TC-RT-FY; 99284-25

== ENCOUNTER 2023-05-28 14:08 | Emergency (ER) | payer OTHER ==
[2023-05-28] MEDS ORDERED: IBUPROFEN 400 MG TABLET (FP) PO ONE ×2 (14:41→14:55)
[2023-05-28 14:44] VITALS: BP 118/80; PULSE 85; RESP 16; TEMP 97.8; BMI 32.4
[2023-05-28] MEDS ORDERED: DIPHTH,PERTUSS(ACELL),TET 0.5 ML DISP.SYRIN IM ONE ×2 (14:50→15:21)
== END 2023-05-28 16:30 | disposition left against medical advice (07) ==
LOC: FER 14:08
DX: S69.91XA Unspecified injury of right wrist, hand and finger(s), initial encounter (principal); V28.49XA Other motorcycle driver injured in noncollision transport accident in traffic accident, initial encounter
CPT/HCPCS: 73130-TC-RT-FY; 73630-TC-RT-FY; 82962; 99283-25

== ENCOUNTER 2023-10-30 00:17 | Emergency (ER) | payer OTHER ==
[2023-10-30 00:24] VITALS: RESP 18; BMI 32.4
[2023-10-30 00:38] VITALS: BP 146/94; PULSE 70; TEMP 98.8
== END 2023-10-30 01:43 | disposition home or self-care (01) ==
LOC: FER 00:17
DX: R10.10 Upper abdominal pain, unspecified (principal); K59.00 Constipation, unspecified
CPT/HCPCS: 74019-TC-FY; 99283-25

== ENCOUNTER 2025-02-25 18:11 | Emergency (ER) | payer OTHER ==
[2025-02-25 18:25] VITALS: BP 118/91; PULSE 87; RESP 18; TEMP 98.2; BMI 25.7
[2025-02-25] MEDS ORDERED: SILVER SULFADIAZINE 1% TOP CREAM 50 GM JAR TP ONE (18:29)
[2025-02-25] MEDS: SILVER SULFADIAZINE 1% TOP CREAM 50 GM JAR TP SCH (18:35)
== END 2025-02-25 18:53 | disposition home or self-care (01) ==
LOC: FER 18:11
DX: T23.272A Burn of second degree of left wrist, initial encounter (principal); X16.XXXA Contact with hot heating appliances, radiators and pipes, initial encounter
CPT/HCPCS: 99283-25

== ENCOUNTER 2025-04-14 18:36 | Emergency (ER) | payer OTHER ==
[2025-04-14 18:44] VITALS: BP 136/87; PULSE 78; RESP 18; TEMP 98.1; BMI 29.1
== END 2025-04-14 19:37 | disposition home or self-care (01) ==
LOC: FER 18:36
DX: R20.0 Anesthesia of skin (principal)
CPT/HCPCS: 73030-TC-RT-FY; 99283-25

== ENCOUNTER 2025-07-20 18:16 | Emergency (ER) | payer OTHER ==
[2025-07-20 18:34] VITALS: BP 124/80; PULSE 78; RESP 16; TEMP 98.4; BMI 29.1
[2025-07-20] MEDS ORDERED: AMOX TR/POT CLAV 875MG/125MG TABLETS (FP) ONE (18:57)
[2025-07-20] MEDS: AMOX TR/POT CLAV 875MG/125MG TABLETS (FP) PO ONE (19:00)
[2025-07-20] MEDS: BACITRACIN ZINC 15 GM TUBE TOPICAL OINTMENT TP ONE (19:03)
== END 2025-07-20 19:09 | disposition home or self-care (01) ==
LOC: FER 18:16
DX: S61.211A Laceration without foreign body of left index finger without damage to nail, initial encounter (principal); W31.2XXA Contact with powered woodworking and forming machines, initial encounter; Y99.0 Civilian activity done for income or pay
CPT/HCPCS: 73140-TC-LT-FY; 99283-25